=== PATIENT | male | born 1940 | race Caucasian/White ===

== ENCOUNTER 2016-12-12 05:56 | Day surgery (SDC) | payer MEDICARE, BC ==
[2016-12-12] MEDS ORDERED: Midazolam 1 MG/ML 2 ML SDV ONE (06:52)
[2016-12-12] MEDS ORDERED: fentaNYL 100 MCG/2 ML SDV ONE (06:52)
[2016-12-12] MEDS ORDERED: Propofol 200 MG/20 ML SDV ONE ×2 (06:52→12:03)
[2016-12-12] MEDS ORDERED: Dextrose 5%-Lactated Ringers 1,000 ML IV SCH (07:00)
[2016-12-12] MEDS ORDERED: Glycopyrrolate 0.2 MG/ML 2 ML SYRINGE IVPUSH ONE (07:30)
[2016-12-12] MEDS ORDERED: Bupivacaine 0.5% 50 ML MDV ONE (07:48)
[2016-12-12] MEDS ORDERED: Lidocaine 1% with EPINEPHrine 1:100,000 50 ML MDV ONE (07:48)
[2016-12-12] MEDS ORDERED: Bacitracin Oint 1 GM U/D Packet ONE (08:43)
[2016-12-12 09:46] VITALS: BP 124/74
--- NOTE | 2016-12-20 11:24 | OR ---
DATE OF PROCEDURE: 12/12/2016 PREOPERATIVE DIAGNOSES: 1. History of Jimenes's esophagus. 2. Nodular lesion tip of left ear. POSTOPERATIVE DIAGNOSES: 1. History of Jimenes's esophagus. 2. Multiple gastric polyps. 3. Nodular lesion tip of left ear. OPERATIVE PROCEDURE: Esophagogastroduodenoscopy with: 1. Biopsy of esophagogastric junction (14567). 2. Gastric polypectomy x2 (09835). 3. Excision of nodular lesion tip of left ear (08623, 37878). ANESTHESIA: Local plus IV sedation. EDUCATION NURSE: KATY Campbell student. INDICATION FOR PROCEDURE: This is a 76-year-old male presenting with a history of Jimenes's esophagus. He is to undergo followup endoscopy for surveillance. The potential risks of the procedure including bleeding and perforation were discussed, and he wishes to proceed. Additionally, the patient notes a nodular lesion at the tip of his left ear, which he would like to have excised. Potential risks of procedure including bleeding, infection, some cosmetic deformity, and such were likewise reviewed, and the patient wishes to proceed. DETAILS OF PROCEDURE: The patient was taken to the operating room and placed initially in left lateral decubitus position. IV sedation was administered, after which the upper GI endoscope was passed orally through the length of the esophagus and into the stomach with retroflexion view of the fundus, thereafter through the pyloric channel and into the duodenum to the junction of the third and fourth portions. Findings included a normal appearing hypopharynx, larynx, upper esophageal sphincter, and esophageal body. At the EG junction, the patient had intact Jazzy effect. There was some upward extension of the gastroesophageal junction mucosal line, but little in the way of acute inflammation. No stricture or plaquing suggestive of neoplastic changes were noted. In stomach there were multiple gastric polyps, which were likely related to long-term proton pump inhibitor use. Two of these were somewhat larger and most vast than the remainder, and those were subsequently removed. The remainder of the stomach and duodenal exams were unremarkable. At this point, using snare technique, 2 polyps were removed and the base of the polypectomy sites satisfactorily cauterized. These were both placed into a basket, which was then retrieved, along with the gastroscope. After the polyps had been retrieved, the scope was then placed back and multiple biopsies were obtained from esophagogastric junction for surveillance of the Jimenes's esophagus. Minimal bleeding from the biopsy sites was seen and the procedure was then concluded with withdrawal of the scope. The patient was now placed in supine position and the left ear area was prepped and draped and the area of concern near the tip of the left ear was anesthetized with 1% lidocaine mixed with Marcaine. An elliptical incision around the lesion was then made; the lesion itself measured 5 mm and the incision length 1.1 cm. Upon removal of the specimen, the deeper soft tissue was approximated with some 6-0 Vicryl stitch and the skin with a 5-0 Prolene stitch. Bacitracin was applied. The patient was taken to the recovery room in satisfactory condition. There were no evident complications. Jeremiah Earl MD /[id number]
== END 2016-12-12 09:55 | disposition home or self-care (01) ==
LOC: JP.SDS 05:56
PROVIDERS: ATTEND Surgery
DX: K31.7 Polyp of stomach and duodenum (principal); L90.5 Scar conditions and fibrosis of skin; K21.0 Gastro-esophageal reflux disease with esophagitis; I10 Essential (primary) hypertension; Z79.899 Other long term (current) drug therapy; Z98.890 Other specified postprocedural states
CPT/HCPCS: 11440; 12051; 43239; 43251; 88305; J2250; J2704; J3010; J7042

== ENCOUNTER 2018-12-31 06:53 | Day surgery (SDC) | payer MEDICARE, BC ==
[2018-12-31] MEDS ORDERED: Lidocaine 1% with EPINEPHrine 1:100,000 50 ML MDV ONE (06:59)
[2018-12-31] MEDS ORDERED: Bupivacaine 0.5% 50 ML MDV ONE (06:59)
[2018-12-31] MEDS ORDERED: Midazolam 1 MG/ML 2 ML SDV ONE (07:07)
[2018-12-31] MEDS ORDERED: Propofol 200 MG/20 ML SDV ONE ×2 (07:07→08:26)
[2018-12-31] MEDS ORDERED: fentaNYL 100 MCG/2 ML SDV ONE (07:07)
[2018-12-31] MEDS ORDERED: Dextrose 5%-Lactated Ringers 1,000 ML IV SCH (07:30)
[2018-12-31] MEDS ORDERED: Ampicillin/Sulbactam Na 1.5 GM in Sodium Chloride 0.9% 50 ML IV ONE (08:15)
[2018-12-31] MEDS ORDERED: Glycopyrrolate 0.2 MG/ML 2 ML SDV IVPUSH ONE (08:15)
[2018-12-31] MEDS ORDERED: Glycopyrrolate 0.2 MG/ML 5 ML MDV ONE (08:23)
[2018-12-31 10:11] VITALS: BP 122/74; PULSE 77
--- NOTE | 2019-01-05 09:30 | OR ---
DATE OF PROCEDURE: 12/31/2018 PREOPERATIVE DIAGNOSES: 1. History of Jimenes esophagus. 2. Atypical skin lesions on back x4. POSTOPERATIVE DIAGNOSES: 1. History of Jimenes esophagus. 2. Mild antral gastritis. 3. Atypical skin lesions on back x4. OPERATIVE PROCEDURE: 1. Esophagogastroduodenoscopy with: a. Biopsies of antrum for FRANCISCO testing. b. Biopsy of esophagogastric junction for histologic evaluation. 2. Excision of a left lateral back lesion with layered closure (94137/82464). 3. Excision of a medial back lesion with layered closure (64279/48487). 4. Excision of medial right back lesion with layered closure (50567/76130). 5. Excision of the right lateral back lesion (37228/10575). ANESTHESIA: Local plus IV sedation. INDICATION FOR PROCEDURE: The patient presents for followup of his Jimenes's esophagus, status post previous Jazzy fundoplication along with that and some ongoing PPI use with adequate symptom control. Plan is to proceed with upper GI endoscopy with surveillance biopsies of the area of the Jimenes's esophagus and other procedures as indicated and also has 4 skin lesions on his back that have atypical features in terms of coloration and change in size recently, and these are to be excised as well. Potential risks of procedure including bleeding and perforation, possible recurrence of the back lesion, or needing additional treatment based on the pathological exam was gone over and the patient wishes to proceed. DESCRIPTION OF PROCEDURE: The patient was taken to the operating room, placed in a left lateral decubitus position. IV sedation was administered, after which the upper GI endoscope was passed orally through the length of esophagus and to the stomach with retroflexion view of the fundus, thereafter through the pyloric channel into the proximal duodenum. FINDINGS: Included normal hypopharynx, larynx, upper esophageal sphincter, and esophageal body. At the EG junction, the patient had an intact Jazzy effect. He did have some upward extension of the gastroesophageal junction mucosal line locked in peninsular type configuration as well as 2 small islands of columnar type mucosa. There is no stricturing, plaquing, or signs of neoplasia. Within the stomach, there was some mild antral gastritis. Otherwise, the stomach and the pyloric sphincter were unremarkable along with the proximal duodenum. Biopsies were obtained from the antrum and sent for CLOtest for H pylori. Multiple biopsies were then obtained circumferentially from the area of the probable Jimenes's esophagus and sent for histologic evaluation. No bleeding from the biopsy site was seen and the procedure then concluded. Attention was then taken to the back lesions. The patient remained in the left lateral decubitus position, which satisfactorily exposed each of the lesions. Overall, there were 4 lesions outlined in the operative procedures. The left lateral back lesion had a lesion length plus margin of 0.7 cm and incision length of 2.1 cm. The medial back lesion had a lesion length plus margin of 1.5 cm and incision length of 2.3 cm. The right medial back lesion had an incision plus margin length of 0.9 cm, incision length of 1.8 cm, and the right lateral back lesion had a lesion plus margin length of 1.0 cm and incision length of 2.4 cm. In each case, the lesions were excised after the areas were anesthetized with 1% lidocaine mixed with Marcaine and transversely oriented elliptical incision made around the lesion maintaining a small margin of normal skin around them. Deeper soft tissues in each case were approximated with some 5-0 Vicryl stitch and the skin with a 5-0 Prolene stitch. Dressings were applied. The patient was taken to the recovery room in satisfactory condition. The patient will be seen next Friday in followup for review of pathology and suture removal. Jeremiah Earl MD /[id number]
== END 2018-12-31 10:30 | disposition home or self-care (01) ==
LOC: JP.SDS 06:53
PROVIDERS: ATTEND Surgery
DX: K22.70 Barrett's esophagus without dysplasia (principal); K20.9 Esophagitis, unspecified; K29.70 Gastritis, unspecified, without bleeding; D22.5 Melanocytic nevi of trunk; L82.1 Other seborrheic keratosis; I10 Essential (primary) hypertension; E78.00 Pure hypercholesterolemia, unspecified; Z88.8 Allergy status to other drugs, medicaments and biological substances; Z79.899 Other long term (current) drug therapy; Z98.890 Other specified postprocedural states
CPT/HCPCS: 11401; 11402; 12034; 43239; 87081; J0287; J2250; J2704; J3010; J3490; J7050; 88305

== ENCOUNTER 2021-01-16 07:14 | Day surgery (SDC) | payer MEDICARE, BC ==
[~2021-01-16 07:14] MED LIST: Bacitracin Oint 1 GM U/D Packet ONE; Bupivacaine 0.5% 50 ML MDV ONE; Lidocaine 1% with EPINEPHrine 1:100,000 50 ML MDV ONE; Midazolam 1 MG/ML 2 ML SDV ONE; Propofol 200 MG/20 ML SDV ONE; fentaNYL 100 MCG/2 ML SDV ONE
[2021-01-16] MEDS ORDERED: Acetaminophen 500 MG Tab PO ONE (07:30)
[2021-01-16] MEDS ORDERED: Gabapentin 300 MG Cap PO ONE (07:30)
[2021-01-16] MEDS ORDERED: Dextrose 5%-Lactated Ringers 1,000 ML IV SCH ×2 (07:45→08:00)
[2021-01-16] MEDS ORDERED: ceFAZolin 2 GM in Premix Bag 1 BAG IV ONE (08:30)
[2021-01-16] MEDS ORDERED: Propofol 200 MG/20 ML SDV ONE ×2 (09:38→10:10)
[2021-01-16] MEDS ORDERED: fentaNYL 100 MCG/2 ML SDV ONE (10:10)
[2021-01-16] MEDS ORDERED: Lactated Ringers 1,000 ML ONE (10:17)
[2021-01-16] MEDS ORDERED: oxyCODONE 5 MG Tab PO PRN (12:00)
[2021-01-16 12:17] VITALS: BP 145/92; PULSE 50
--- NOTE | 2021-01-23 13:54 | OR ---
DATE OF PROCEDURE: 01/16/2021 SURGEON: Jeremiah Earl MD PREOPERATIVE DIAGNOSES: 1. History of Jimenes esophagus. 2. Atypical skin lesion anterior to the right ear. 3. Atypical skin lesion posterior to the left ear. 4. Recurrent right inguinal hernia with associated chronic pain. POSTOPERATIVE DIAGNOSES: 1. History of Jimenes esophagus. 2. Atypical skin lesion anterior to the right ear. 3. Atypical skin lesion posterior to the left ear. 4. Recurrent right inguinal hernia with associated chronic pain. 5. Enlarged right inguinal lymph node. PROCEDURES: 1. Esophagogastroduodenoscopy with: a. Biopsy of esophagogastric junction. b. Biopsies of antrum for CLOtest (73865). 2. Excision of atypical skin lesion anterior to the right ear with layered closure (52027, 24612). 3. Liquid nitrogen treatment to atypical skin lesion posterior to left ear (46602). 4. Right inguinal exploration with: a. Repair of recurrent incarcerated inguinal hernia with mesh (16886). b. Excision of portions of right ilioinguinal nerve, iliohypogastric nerve, and genitofemoral nerve (81004 x3). c. Excision of enlarged right inguinal lymph node (96805). ANESTHESIA: Local plus IV sedation. 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 Also has chronic pain that appeared to be associated with a recurrent right inguinal hernia, which was repaired around 10 years ago. The plan is to proceed with upper endoscopy with biopsies, excision of the somewhat thicker lesion in front of the right ear and liquid nitrogen to the thinner lesion behind the left ear, and then inguinal exploration with repair of the hernia with or without mesh, and we will aim to divide as many of the triad of nerves that lead to chronic pain in this area as those can be identified. Potential risks of the procedure including bleeding, infection, recurrence of the skin lesions, recurrence of hernia, persistent chronic pain following the hernia repair were all reviewed, and the patient wishes to proceed. DETAILS OF PROCEDURE: The patient was taken to the operating room, placed in a left lateral decubitus position. IV sedation was administered, after which the upper GI endoscope was passed orally through the length of the esophagus and into the stomach with retroflexion view of the fundus, thereafter through the pyloric channel into the junction of the third and fourth portions of the duodenum. The patient had an intact Jazzy effect, although at this point, this was somewhat loose. There was minimal gross inflammation in the distal esophagus. There was some upward extension of the gastroesophageal junction aligned with some islands of columnar mucosa also identified within the distal squamous mucosa. There was no plaquing or gross sense of tendency toward neoplastic change, and no stricturing was noted. The remainder of the stomach was unremarkable as was the duodenum. At this point, biopsies from the antrum were sent for CLOtest for H pylori. Multiple biopsies were then obtained from esophagogastric junction, sent for histologic evaluation. Minimal bleeding from the biopsy sites was seen and the procedure then concluded. The patient was now placed back into supine position. Initially, on the right side, anterior to the right ear and surrounding were prepped and draped, and the area of concern was outlined and anesthetized with 1% lidocaine mixed with Marcaine. An elliptical incision in the skin lines was then made and carried down through the skin and subcutaneous tissue, lesion was removed intact. The lesion plus margin length was 3.5 cm and incision length 5.0 cm. The deeper soft tissues were approximated with some 5-0 Vicryl stitch and the skin with 5-0 Prolene skin stitch. Attention was then taken to the area behind the left ear. This was treated with 2 sessions of liquid nitrogen over an area of about 1 cm circular region and that procedure then concluded. The abdomen and groin areas were then prepped and draped, and the right inguinal area was anesthetized with 1% lidocaine mixed with Marcaine and the previous right inguinal incision was then reused and carried down through the skin and subcutaneous tissue and the cord structures were then mobilized upward. The patient certainly had an intact floor as well as internal ring. There was a small defect in the far medial aspect of the floor where the cord structures emanated underneath the mesh in that area. This was reduced at this point, and a medium-sized mesh plug was placed into that area and sutured. There with some 0 Vicryl stitch. During the course of the dissection, what appeared to be ilioinguinal nerve, iliohypogastric nerve, and genitofemoral nerve were all identified and excised out to the far extent of the incision to minimize postoperative neuropathic pain. Finally, the patient was noted to have a fairly enlarged inguinal lymph node that was in the area immediately underneath where the patient had chronic pain. This was excised and sent for some cultures as well as histologic evaluation. The lymphatic vessels coming to and from the node were ligated with 4-0 Vicryl ties as they were encountered. At this point, the incision was closed with some 3-0 and 4-0 Vicryl stitches deep and 4-0 Vicryl subcuticular stitches and glue applied. The patient was taken to the recovery room in satisfactory condition. There were no evident complications. Physician credit control assistant, Chelsie Carbajal, played an essential role in assisting in this case, helping to position the patient, retract structures as needed, as well as suturing and cutting sutures when indicated. Her presence improved patient safety and decreased the operative time. Jeremiah Earl MD /[id number]
== END 2021-01-16 13:16 | disposition home or self-care (01) ==
LOC: JP.SDS 07:14
PROVIDERS: ATTEND Surgery
DX: L57.0 Actinic keratosis (principal); L82.1 Other seborrheic keratosis; K22.8 Other specified diseases of esophagus; L98.8 Other specified disorders of the skin and subcutaneous tissue; I77.89 Other specified disorders of arteries and arterioles; K40.91 Unilateral inguinal hernia, without obstruction or gangrene, recurrent; R59.0 Localized enlarged lymph nodes; G47.33 Obstructive sleep apnea (adult) (pediatric); G89.29 Other chronic pain; G58.8 Other specified mononeuropathies; I10 Essential (primary) hypertension; E78.00 Pure hypercholesterolemia, unspecified; Z88.8 Allergy status to other drugs, medicaments and biological substances
CPT/HCPCS: 11444; 12052; 17110; 38500; 43239; 49520; 64772; 87015; 87070; 87081; 87102; 87116; 87205; 87206; 87220; 88302; 88305; A9270; C1781; J0690; J2250; J2704; J3010; J3490; J7120; J7121

== ENCOUNTER 2021-05-01 07:26 | Day surgery (SDC) | payer MEDICARE, BC ==
[2021-05-01] MEDS ORDERED: Dextrose 5%-Lactated Ringers 1,000 ML IV SCH (08:00)
[2021-05-01] MEDS ORDERED: Acetaminophen 500 MG Tab PO ONE (08:00)
[2021-05-01] MEDS ORDERED: Lidocaine 1% with EPINEPHrine 1:100,000 50 ML MDV ONE (08:17)
[2021-05-01] MEDS ORDERED: ceFAZolin 2 GM in Premix Bag 1 BAG IV ONE (08:45)
[2021-05-01] MEDS ORDERED: Propofol 200 MG/20 ML SDV ONE (09:22)
[2021-05-01] MEDS ORDERED: Midazolam 1 MG/ML 2 ML SDV ONE (09:22)
[2021-05-01] MEDS ORDERED: fentaNYL 100 MCG/2 ML SDV ONE (09:22)
[2021-05-01] MEDS ORDERED: Lidocaine 0.5% 50 ML SDV ONE (09:23)
[2021-05-01] MEDS ORDERED: Ketorolac 30 MG/ML SDV ONE (10:22)
[2021-05-01 12:25] VITALS: BP 138/68; PULSE 54
--- NOTE | 2021-05-03 11:03 | OR ---
DATE OF PROCEDURE: 05/01/2021 SURGEON: Jeremiah Earl MD PREOPERATIVE DIAGNOSIS: Right trigger thumb. POSTOPERATIVE DIAGNOSIS: Right trigger thumb. OPERATIVE PROCEDURE: Right trigger thumb release ([id number]). ANESTHESIA: IV block plus sedation. INDICATION FOR PROCEDURE: This is a 80-year-old male presenting with significantly affected right trigger thumb. After preop evaluation and discussion, he wished to proceed with release of this. Potential risks including bleeding, infection, possible incomplete relief of symptoms, possible injury to the digital nerves adjacent to the tendon sheath were reviewed, and the patient wishes to proceed. DETAILS OF PROCEDURE: The patient was taken to the operating room, and after IV sedation was administered and IV block was placed affecting the right forearm and hand, those areas were then prepped and draped. The had been marked previously. One could easily feel the tendon passing in and out of that area upon flexion and extension of the thumb. A transverse incision was made over this area and carried down through the skin and subcutaneous tissue. The soft tissues were then retracted lateral and medially from the tendon sheath to avoid injury to the digital nerves. The tendon sheath over this area was then incised and a segment of it resected leaving a roughly 1/3 of the circumference of the tendon sheath open. This was extended superiorly and inferiorly roughly 2 to 3 cm in each direction to assure full release of the area of compression. The tendon itself otherwise appeared to be intact tightened area of the proximal candace in a neutral position. At that point, the subcutaneous tissue was approximated with some 4-0 Vicryl stitch and the skin was closed with 5-0 Prolene stitch. Dressing was applied and the patient was taken to the recovery room in satisfactory condition. There were no evident complications. The patient was taken to the recovery room in satisfactory condition. Jeremiah Earl MD /[id number]
== END 2021-05-01 11:45 | disposition home or self-care (01) ==
LOC: JP.SDS 07:26
PROVIDERS: ATTEND Surgery
DX: M65.311 Trigger thumb, right thumb (principal); I10 Essential (primary) hypertension; Z88.8 Allergy status to other drugs, medicaments and biological substances
CPT/HCPCS: 26055; A9270; J0690; J1885; J2250; J2704; J3010; J7121; 88304

== ENCOUNTER 2025-03-23 09:29 | Day surgery (SDC) | payer MEDICARE, BC ==
[2025-03-23] MEDS: Lactated Ringers 1,000 ML IV SCH (10:14)
[2025-03-23] MEDS ORDERED: fentaNYL 50 MCG/ML SDV ONE (11:05)
[2025-03-23] MEDS ORDERED: Propofol 200 MG/20 ML SDV ONE (11:05)
[2025-03-23 12:02] VITALS: BP 147/58; PULSE 61
== END 2025-03-23 12:10 | disposition home or self-care (01) ==
LOC: JP.SDS 09:29
PROVIDERS: ATTEND Surgery
DX: K22.70 Barrett's esophagus without dysplasia (principal); K21.00 Gastro-esophageal reflux disease with esophagitis, without bleeding; E78.00 Pure hypercholesterolemia, unspecified; I10 Essential (primary) hypertension; E66.9 Obesity, unspecified; Z79.82 Long term (current) use of aspirin; Z79.899 Other long term (current) drug therapy
CPT/HCPCS: 00731; 43239; J2704; J3010; J7120